=== PATIENT | female | born 1995 | race Caucasian/White ===

== ENCOUNTER 2018-03-12 20:26 | Emergency (ER) | payer BC ==
[2018-03-12 21:05] VITALS: BP 119/76; PULSE 92; RESP 18; TEMP 98.8
--- NOTE | 2018-03-12 21:59 | XR ---
Left ankle and foot HISTORY: Trauma and pain 3 views of the left ankle and 3 views of the left foot There is soft tissue swelling present. Lucency present at the medial aspect of the ankle mortise coul d represent an osteochondral defect at questionable age. Alignment, bone mineralization, joint spaces otherwise maintained. IMPRESSION: Soft tissue swelling. Difficult to exclude osteochondral defect at the ankle mortise, ank le MRI may be of benefit.
--- NOTE | 2018-03-12 22:52 | ED ---
General Adult HPI - General Chief complaint: Extremity Injury, Lower Stated complaint: Foot pain Time Seen by Provider: 03/12/18 21:23 Source: patient, family, RN notes reviewed Mode of arrival: wheelchair Limitations: no limitations - History of Present Illness Initial comments: 22-year-old female presents to the emergency department for a chief complaint of left ankle injury about 6 hours ago. Patient states she was walking up the steps when her foot went through the second step and she rolled her ankle. No lacerations to the foot. Patient states that it was not as painful at first but worsened throughout the day. Patient states it is now painful to walk on. Patient denies falling or hitting her head. No other injuries. Patient states icing it helped to make it feel better. Patient has no other complaints at this time including shortness of breath, chest pain, abdominal pain, nausea or vomiting, headache, or visual changes. - Related Data Allergies Allergy/AdvReac Type Severity Reaction Status Date / Time Sulfa (Sulfonamide Allergy Unknown Verified 03/12/18 21:02 Antibiotics) Review of Systems ROS Statement: Those systems with pertinent positive or pertinent negative responses have been documented in the HPI. ROS Other: All systems not noted in ROS Statement are negative. Past Medical History Past Medical History: No Reported History History of Any Multi-Drug Resistant Organisms: None Reported Past Surgical History: Adenoidectomy Additional Past Surgical History / Comment(s): spinal biopsy and chemo treatment Past Psychological History: No Psychological Hx Reported Smoking Status: Never smoker Past Alcohol Use History: None Reported Past Drug Use History: None Reported General Exam Limitations: no limitations General appearance: alert, in no apparent distress Head exam: Present: atraumatic, normocephalic, normal inspection Eye exam: Present: normal appearance ENT exam: Present: normal exam, mucous membranes moist Neck exam: Present: normal inspection, full ROM. Absent: tenderness, meningismus, lymphadenopathy Respiratory exam: Present: normal lung sounds bilaterally. Absent: respiratory distress, wheezes, rales, rhonchi, stridor Cardiovascular Exam: Present: regular rate, normal rhythm, normal heart sounds. Absent: systolic murmur, diastolic murmur, rubs, gallop, clicks Extremities exam: Present: tenderness (Tenderness to the dorsal medial aspect of the left ankle.), normal capillary refill (Pedal pulse 2+ and capillary refill less than 2 seconds in the left ankle.), joint swelling (Patient does have mild localized edema noted of the dorsal left ankle.), other (Sensation intact in the left lower extremity). Absent: full ROM (Patient has some limited flexion and extension of the left ankle but is able to move it. Tenderness to the dorsal aspect of the left ankle. No tenderness to the lateral or medial malleolus. No tenderness elsewhere in the foot.), calf tenderness Course Vital Signs 03/12/18 21:02 Temperature 98.8 F Pulse Rate 92 Respiratory 18 Rate Blood Pressure 119/76 O2 Sat by Pulse 98 Oximetry Procedures - Procedures Initial comment: Neurovascular intact before splint application Indication: Possible osteochondral involvement of the left ankle Type: Posterior short leg, splinted at 90 Wounds: no abrasions or lacerations underneath splint Neurovascular status: patient has sensation and movement of digits extending outside the splint, there is no cyanosis, capillary refill < 2 seconds Follow-up: patient given number for orthopedics and instructed to phone to make an appointment. Patient aware she can return to the Emergency Department if any difficulties. Medical Decision Making - Medical Decision Making 22-year-old female presents to the emergency department for a chief complaint of left ankle injury 6 hours ago. Pain worsened over the past 6 hours. Patient states it is difficult to walk on. Patient rolled it while walking on the stairs. No other injuries. On the exam there is some mild dorsal left ankle swelling. Patient does have some limited range of motion of the left ankle but is able to flex and extend it. Neurovascular intact in the left lower extremity.X-ray of the left foot and ankle show soft tissue swelling. Difficult to exclude osteochondral defect at the ankle mortise. Patient was splinted in a posterior short leg splint. Splint was kept at 90. Patient will use crutches and follow-up with orthopedics in one to 2 days. She will rest ice and elevate the foot and take Motrin or Tylenol for pain. Patient denies chance of . She will return to the emergency Department if she has any worsening symptoms. Patient was educated that if wrap is too tight and foot starts to feel numb she can rewrap it. Disposition Clinical Impression: Ankle pain Disposition: HOME SELF-CARE Condition: Good Instructions: Ankle Sprain (ED), RICE Therapy (ED) Additional Instructions: Please take Motrin or Tylenol for pain. Please rest ice and elevate the ankle and use crutches as necessary. Please follow up with orthopedics in one to 2 days for possible injury involving the bone of the ankle. Return to the emergency department if you have any worsening symptoms. Is patient prescribed a controlled substance at d/c from ED?: No Referrals: Bakari Collins DO [Doctor of Osteopathic Medicine] - 1-2 days Time of Disposition: 22:51
== END 2018-03-12 23:52 | disposition home or self-care (01) ==
LOC: EC 20:26
DX: M25.572 Pain in left ankle and joints of left foot (principal); Z88.2 Allergy status to sulfonamides; X50.1XXA Overexertion from prolonged static or awkward postures, initial encounter; Y93.01 Activity, walking, marching and hiking
CPT/HCPCS: 29515; 99283